=== PATIENT | female | born 1950 | race Caucasian/White ===

== ENCOUNTER 2018-07-23 07:04 | Day surgery (SDC) | payer MEDICARE, BC ==
[~2018-07-23 07:04] MED LIST: CEFAZOLIN 2 Gram 2 GM/50 ML BAG IVPB ONE; CELECOXIB 100 MG CAPSULE PO ONE; FAMOTIDINE 20MG TABLET PO ONE; METOCLOPRAMIDE 10 MG TABLET PO ONE; SCOPOLAMINE 1 PATCH TDSY TD ONE; VANCOMYCIN HCL 1,000 MG in DEXTROSE 5 % IN WATER 250 ML IVPB ONE
[2018-07-23] MEDS ORDERED: ONDANSETRON HCL IV 4 MG/2 ML VIAL IVP ONE (07:05)
[2018-07-23] MEDS ORDERED: MIDAZOLAM HCL 2MG/2ML VIAL IV ONE (07:05)
[2018-07-23] MEDS ORDERED: FENTANYL PF 100MCG/2ML VIAL IV ONE ×2 (07:05)
[2018-07-23] MEDS ORDERED: PROPOFOL 10 MG/ML VIAL IV ONE (07:05)
[2018-07-23] MEDS ORDERED: LIDOCAINE 2% MDV (20MG/ML) 20ML VIAL IV ONE (07:05)
[2018-07-23] MEDS ORDERED: HYDROMORPHONE HCL 2 MG/ML VIAL IV ONE (07:05)
[2018-07-23] MEDS ORDERED: DEXAMETHASONE 4 MG/ML 1ML VIAL IVP ONE (07:05)
[2018-07-23] MEDS ORDERED: TRANEXAMIC ACID 1,000 MG/10 ML ML IV ONE (07:05)
[2018-07-23] MEDS ORDERED: BUPIVACAINE 0.5% W/EPI MPF 30 ML VIAL IVP ONE (07:05)
[2018-07-23] MEDS ORDERED: SEVOFLURANE 250 ML INH ONE (07:05)
[2018-07-23 08:00] LABS: ABO GROUP A; ANTIBODY SCREEN NEGATIVE (NEGATIVE); RH TYPE POSITIVE
[2018-07-23] MEDS ORDERED: AL HYDROX/MAG HYDROX 30ML UD PO PRN (11:27)
[2018-07-23] MEDS ORDERED: TRAMADOL HCL 50 MG TABLET PO PRN (11:27)
[2018-07-23] MEDS ORDERED: HYDROMORPHONE HCL 2 MG/ML VIAL IM PRN (11:27)
[2018-07-23] MEDS ORDERED: DIPHENHYDRAMINE HCL 25 MG CAPSULE PO PRN (11:27)
[2018-07-23] MEDS ORDERED: ACETAMINOPHEN 325 MG TAB PO PRN (11:27)
[2018-07-23] MEDS ORDERED: ACETAMINOPHEN W/ CODEINE 300MG/60MG TABLET PO PRN ×2 (11:27)
[2018-07-23] MEDS ORDERED: MAGNESIUM HYDROXIDE 30 ML UDC PO PRN (11:27)
[2018-07-23] MEDS ORDERED: ZOLPIDEM TARTRATE 5 MG TABLET PO PRN (11:27)
[2018-07-23] MEDS ORDERED: BISACODYL 10 MG SUPP RC PRN (11:27)
[2018-07-23] MEDS ORDERED: HYDROCODONE/APAP 10/325 TABLET PO PRN (11:27)
[2018-07-23] MEDS ORDERED: KETOROLAC 30 MG/ML VIAL IVP PRN ×2 (11:27)
[2018-07-23] MEDS ORDERED: NALOXONE 0.4 MG/1 ML VIAL IVP PRN (11:27)
[2018-07-23] MEDS ORDERED: PNEUM 23-VAL ADULT IM ONE (13:01)
--- NOTE | 2018-07-23 14:09 | Rehab Evaluation ---
Patient Information - Patient Information Diagnosis: R knee OA Ordered Treatment: PT Evaluate and Treat Status: Initial Evaluation Surgery: Yes (R TKA) Date of Surgery: 07/23/18 Past Medical/Surgical Hx: PAST MEDICAL/SURGICAL HISTORY Past Surgical History left knee scope cardiac ablations x's 4 last one 2015 PMH - Respiratory Hx Respiratory Disorders Yes Hx Bronchitis Yes Hx Sleep Apnea Yes Hx of CPAP Yes PMH - Cardiovascular Hx Cardiovascular Disorders Yes Hx Abnormal EKG Yes Hx Cardiac Catheterization Yes: x's 2 Hx Hypertension Yes: on meds good control Hx Irregular Heartbeat Yes: a fib has had ablations x's 4 Exercise Tolerance Fair PMH - Neuro Hx Neurological Disorders Yes Comment: RLS PMH - GI Hx Gastrointestinal Disorders Yes Hx Weight Loss/Weight Gain Yes: 40 lb gain over last year after custodial PMH - Hx Genitourinary Disorders No Hx Age of Menopause 42 PMH - Endocrine Hx Endocrine Disorders Yes Hx Thyroid Disease Yes PMH - Musculoskeletal Hx Musculoskeletal Disorders Yes Hx Arthritis Yes: OA Comment: systemic lupus PMH - Psych Hx Psychiatric Problems No PMH - Hematology/Oncology Hx Hematology/Oncology Yes Disorders Hx Bruising Yes: on Eliquis Hx Cancer Yes: skin Premorbid Status: Detail (The patient was independent with all mobility prior to surgery.) Social History: Detail (The patient lives in a 2 story house with spouse with 3 steps at the enterance with one railing. There are 13 stairs to climb to second floor with one handrail. The patient's bathroom is equipped with a tub/shower combination and an elevated toilet. No handrails are present. The patient has a standard walker.) Precautions: [place], Fall, Other (WBAT on the R LE) - Time With Patient Total Time Spent With Patient (Min): 30 Treatment Procedures: Detail (Initial Evaluation, Gait training) Subjective Information - Subjective Information Per Patient (The patient had complaints of R knee pain level 8 at the highest using 0-10 pain scale after ambulating. The patient also had complaints of lightheadness and nausea when sitting.) Objective Data - Mental Status Patient Orientation: Oriented x3 - Visual Perception Appears within normal limits for therapeutic activities - ROM Not within normal limits (The patient's R knee AROM was limited s/p surgery, all other LE AROM was WNL.) - Strength/Tone Not within normal limits (The patient's R LE strength was not tested however was functional ie: patient was able to complete a SLR. The patient's L LE strength was WFL.) - Bed Mobility Independent (The patient was independent with supine to and from sit transfer and scooting up in bed.) - Transfers Independent (The patient was independent with sit to and from stand transfer and toilet transfer with use of grab bar.) - Balance Balance Sitting: Good Balance Standing: Good - Sensation Intact - Gait Detail (The patient ambulated with standard walker with supervision/CG for safety 15 feet x 1 WBAT one R LE. The patient c/o nausea and slight lightheadedness.) Therapy Assessment - Therapy Assessment Detail (The patient was independent with bed mobility and transfers. The patient ambulated limited distance secondary to lightheadness and nausea. Feel patient will progress well with mobility.) Patient Education - Patient Education Teaching Topic: Exercise/Activity (The patient completed the following TKA exercises: ankle pumps, heel slides, SLR, gluteal sets, quad sets and hamstring sets.) Response: Return Demonstration Teaching Method: Demonstration, Handout Teaching Recipient: Patient Barriers To Learning: None Problem List - Problem List Physical Therapy Problem List: Detail (1) Decreased R knee AROM and R LE strength as to be expected following surgery 2) Nonambulatory on stairs) Goals - Goals Physical Therapy Goals: 1) The patient will ambulate independently a distance of 100 feet plus with assistive device WBAT on the R LE. 2) The patient will ambulate on stairs with supervision for safety using proper technique. Prognosis - Prognosis Good Plan - Plan Physical Therapy Plan: PT for 1-2 sessions for gait training on levels and stairs.
[2018-07-23] MEDS: HYDROCODONE/APAP 10/325 TABLET PO PRN ×2 (15:22→20:47)
[2018-07-23] MEDS: ONDANSETRON HCL IV 4 MG/2 ML VIAL IVP PRN ×2 (15:22→20:49)
[2018-07-23] MEDS: PROPRANOLOL HCL 10 MG TABLET PO SCH ×2 (15:24→21:42)
[2018-07-23] MEDS: POTASSIUM CHLORIDE/D5-0.9%NACL 20 MEQ/1,000 ML BAG IV SCH ×3 (16:21→20:52)
[2018-07-23] MEDS: CEFAZOLIN 2 Gram 2 GM/50 ML BAG IVPB SCH (17:57)
[2018-07-23] MEDS: APIXABAN 5MG TABLET PO SCH (17:58)
[2018-07-23] MEDS: ROPINIROLE HCL 1 MG TABLET PO SCH ×2 (18:07→20:46)
[2018-07-23] MEDS: POTASSIUM CHLORIDE 20 MEQ TABLET PO SCH (21:41)
[2018-07-23] MEDS: VERAPAMIL HCL 180 MG TAB CR PO SCH (21:42)
[2018-07-23] MEDS: DOCUSATE SODIUM 100 MG CAPSULE PO SCH (21:42)
[2018-07-23] MEDS ORDERED: ATORVASTATIN 20 MG TABLET PO SCH (22:00)
[2018-07-23] MEDS ORDERED: PATIENT OWN MED: ROPINIROLE 0.5 MG PO SCH (22:00)
[2018-07-24] MEDS: HYDROCODONE/APAP 10/325 TABLET PO PRN ×3 (01:20→10:50)
[2018-07-24] MEDS: CEFAZOLIN 2 Gram 2 GM/50 ML BAG IVPB SCH ×3 (01:21→11:39)
[2018-07-24] MEDS: POTASSIUM CHLORIDE/D5-0.9%NACL 20 MEQ/1,000 ML BAG IV SCH (06:08)
[2018-07-24 06:54] LABS: HEMATOCRIT 37.7 % (35.0-47.0); HEMOGLOBIN 12.2 gm/dl (11.6-16.0)
[2018-07-24] MEDS ORDERED: LEVOTHYROXINE SODIUM 75 MCG TABLET PO SCH (07:00)
[2018-07-24 07:04] LABS: BLOOD UREA NITROGEN 15 mg/dL (8-23); CREATININE 0.6 mg/dL (0.5-0.9); EST GLOMERULAR FILTRATION RATE > 60 mL/min; GLUCOSE,RANDOM 121 mg/dL (74-109)
[2018-07-24] MEDS: ONDANSETRON HCL IV 4 MG/2 ML VIAL IVP PRN (07:51)
--- NOTE | 2018-07-24 08:22 | Rehab Evaluation ---
Patient Information - Patient Information Diagnosis: R knee OA Ordered Treatment: OT Evaluate and Treat Status: Initial Evaluation Surgery: Yes (R TKA) Date of Surgery: 07/23/18 Past Medical/Surgical Hx: PAST MEDICAL/SURGICAL HISTORY Past Surgical History left knee scope cardiac ablations x's 4 last one 2015 PMH - Respiratory Hx Respiratory Disorders Yes Hx Bronchitis Yes Hx Sleep Apnea Yes Hx of CPAP Yes PMH - Cardiovascular Hx Cardiovascular Disorders Yes Hx Abnormal EKG Yes Hx Cardiac Catheterization Yes: x's 2 Hx Hypertension Yes: on meds good control Hx Irregular Heartbeat Yes: a fib has had ablations x's 4 Exercise Tolerance Fair PMH - Neuro Hx Neurological Disorders Yes Comment: RLS PMH - GI Hx Gastrointestinal Disorders Yes Hx Weight Loss/Weight Gain Yes: 40 lb gain over last year after fdc PMH - Hx Genitourinary Disorders No Hx Age of Menopause 42 PMH - Endocrine Hx Endocrine Disorders Yes Hx Thyroid Disease Yes PMH - Musculoskeletal Hx Musculoskeletal Disorders Yes Hx Arthritis Yes: OA Comment: systemic lupus PMH - Psych Hx Psychiatric Problems No PMH - Hematology/Oncology Hx Hematology/Oncology Yes Disorders Hx Bruising Yes: on Eliquis Hx Cancer Yes: skin Premorbid Status: Detail (The patient was independent with all mobility, home mgmt and laundry prior to surgery. Spouse completes meal prep and will be assisting with IADLs.) Social History: Detail (The patient lives in a 2 story house with spouse with 3 steps at the entrance with one railing. There are 13 stairs to climb to second floor with one handrail. Her bedroom and one bathroom are on the second floor. The patient's bathroom is equipped with a tub/shower combination and an elevated toilet. No handrails are present. The patient has a 2 wheeled walker, cane, director account management and long shoe horn and has ordered a tub seat and suction cup grab bar for the tub.) Precautions: [place], Fall, Other (WBAT on the R LE) - Time With Patient Total Time Spent With Patient (Min): 35 Treatment Procedures: Detail (OT eval low complexity) Subjective Information - Subjective Information Per Patient Objective Data - Pain Pain Present: Yes (05/27) - Mental Status Patient Orientation: Oriented x3 - Visual Perception Appears within normal limits for therapeutic activities - ROM Within normal limits (Ned UE AROM WNL) - Strength/Tone Within normal limits (Ned UE strength WNL) - Coordination Appears within normal limits for therapeutic activities - Bed Mobility Independent (Ind with supine to sit) - Transfers Independent (Ind with sit to stand from EOB and chair height.) - Balance Balance Sitting: Good Balance Standing: Good - Sensation Intact - Gait Detail (Pt ambulating in room with 2 wheeled walker Indly.) - ADL's/IADL's Detail (Pt educated and able to demonstrate learning of modified LE dressing techniques including doffing briefs and donning underwear and pants. Pt reports she will not be wearing socks and she has slip on shoes but would prefer to keep slipper socks on currently. Pt educated re: shower and kitchen safety and modifications. She was able to demonstrate learning.) Therapy Assessment - Therapy Assessment Detail (Pt is safe and Ind with modified LE dressing techniques.) Problem List - Problem List Physical Therapy Problem List: Detail (1) Decreased R knee AROM and R LE strength as to be expected following surgery 2) Nonambulatory on stairs) Occupational Therapy Problem List: Detail (No current IP OT problems identified. ) Goals - Goals Physical Therapy Goals: 1) The patient will ambulate independently a distance of 100 feet plus with assistive device WBAT on the R LE. 2) The patient will ambulate on stairs with supervision for safety using proper technique. Occupational Therapy Goals: No current IP OT goals identified. Prognosis - Prognosis Good Plan - Plan Physical Therapy Plan: PT for 1-2 sessions for gait training on levels and stairs. Occupational Therapy Plan: No IP OT recommended at this time. Thank you for the referral.
[2018-07-24] MEDS ORDERED: FERROUS SULFATE 325 MG TAB PO SCH (10:00)
[2018-07-24] MEDS ORDERED: BUMETANIDE 1 MG TABLET PO SCH (10:00)
[2018-07-24] MEDS ORDERED: AMIODARONE HCL 200 MG TABLET PO SCH (10:00)
[2018-07-24] MEDS: APIXABAN 5MG TABLET PO SCH (10:09)
[2018-07-24] MEDS: VERAPAMIL HCL 180 MG TAB CR PO SCH (10:09)
[2018-07-24] MEDS: PROPRANOLOL HCL 10 MG TABLET PO SCH (10:10)
[2018-07-24] MEDS: POTASSIUM CHLORIDE 20 MEQ TABLET PO SCH (10:10)
[2018-07-24] MEDS: DOCUSATE SODIUM 100 MG CAPSULE PO SCH (10:10)
--- NOTE | 2018-07-24 10:10 | Physical Therapy Tx Note ---
Physical Therapy Tx Note - Treatment Note Tolerated: Good Total Time Spent With Patient: 25 Physical Therapy Tx Note: Detail (The patient ambulated with 2 wheeled walker a distance of 128 feet x 1 WBAT on R LE. The patient ambulated on 3 steps with use of railing and folded walker using proper technique with supervision for safety. The patient's HEP of TKA exercises was reviewed. The patient has met inpatient goals and is discharged from inpatient PT.) Physical Therapy Problem List: Detail (1) Decreased R knee AROM and R LE strength as to be expected following surgery 2) Nonambulatory on stairs) Physical Therapy Goals: 1) The patient will ambulate independently a distance of 100 feet plus with assistive device WBAT on the R LE. (Goal Met). 2) The patient will ambulate on stairs with supervision for safety using proper technique. (Goal Met) Physical Therapy Plan: The patient has met all inpatient goals and is discharged from inpatient PT. The patient is to receive outpatient PT.
--- NOTE | 2018-07-30 14:00 | Operative Note ---
DATE OF SURGERY: 07/23/2018 PREOPERATIVE DIAGNOSIS: End-stage arthrosis of the right knee. POSTOPERATIVE DIAGNOSIS: End-stage arthrosis of the right knee. OPERATION: Cemented right total knee arthroplasty using Anton and Nephew Eda II components, a size 5 Oxinium femur, size 5 stem tibia baseplate, a 9 mm lipped, tightly crosslinked tibial insert, and a 32 mm all plastic patella. Staff Surgeon: Sumit Kaplan MD Anesthesia: General. Preparation: Chloraprep. Individual Considerations: None. PROCEDURE: The patient was taken to the operating room, placed supine on the operating room table. Had a successful induction of a general anesthetic. The right lower extremity was prepped and draped in the usual fashion. Limb was elevated. Tourniquet was inflated to 250 mmHg. The patient had a midline approach to the knee. Sharp dissection carried down through the skin and subcutaneous tissue. Small veins were coagulated with a Bovie. A medial arthrotomy was performed. Patella was everted and exposed bone in the medial and patellofemoral compartments. Fat pad was resected. ACL was sacrificed. Provisional anterior meniscectomies were performed, and the capsule was released from the medial proximal tibia. The initial femoral river pilot hole was then made freehand. The intramedullary femoral cutting jig was placed. It was cut in 7.0 degrees of valgus and adjusted for rotation and secured with pins for a 10 mm resection. The initial transverse cut was then made. Skin guide was placed in the anterior and posterior river pilot holes. The transverse cut was 10 mm. The anterior river pilot holes were impacted and it was found that a size 5 would be appropriate. The anterior and posterior cuts followed by chamfer cuts were made. Osteophytes were removed. A size 5 trial was placed and found to fit well. The tibia was brought forward and the remainder of the meniscal remnants removed with a Bovie. The extraarticular tibial cutting jig was placed. It was cut in neutral with a 3-degree AP slope. Care was taken to adjust for rotation and flexion using the extraarticular alignment guide and bony landmarks. It was sent for 9 mm resection keyed off the high lateral side and secured with pins. When cutting the tibia, care was taken to preserve the PCL insertion on the tibia. After removing osteophytes, I was able to fit a size 5. It was adjusted for rotation and secured with pins. We had a 9 mm trial and femoral trial. There was excellent motion and stability, ligamentous balance, rotation, alignment, and patellofemoral tracking were normal. The patient had a thick patella and roughly 9 mm of bone was removed. I was able to put in a 32 mm patella and the 3 river pilot holes were drilled. Elevator Installer Apprentice holes were also impacted on the femoral and tibial sides off the trials. Tourniquet leg down briefly to get bleeders posteriorly, then placed back up again. The patient had the bony surfaces then dried. Prior to this, I did thoroughly irrigate out with pulsatile Betadine and saline. Bony surfaces were then dried. A size 5 stem tibia baseplate was cemented into place followed by impaction of the 9 mm tibial insert followed by cementing in s size 5 Oxinium femur followed by cementing in a 32 mm all plastic patella. Implant surfaces were compressed. Excess cement was removed. After the cement had set, there was excellent motion and stability, ligamentous balance, rotation, alignment, and patellofemoral tracking were normal. No lateral recess was required. After thorough irrigation, tourniquet let down. Hemostasis was obtained with a Bovie. The capsule was then closed with a running #2 quill. Prior to this, the subcu, skin, and periosteum were infiltrated with 30 mL of 0.5% Marcaine with epinephrine. After closing the fascia, the subcu was closed in layers, running 0 quill, skin was closed with jeanette. The patient did receive 1 gram of tranexamic acid perioperatively. I mixed 1 g of tranexamic acid with 30 mL of saline and injected into the knee through a sterile 18-gauge needle. A sterile bulky compression SMILEY type dressing was applied. The patient tolerated procedure well. Needle and sponge counts were correct. Estimated blood loss was minimal. She was taken back to recovery in good condition. There were no complications MTDD
== END 2018-07-24 13:05 | disposition home health service (06) ==
LOC: SUR 07:04 → MEDSURG 12:27 → SUR 07-24 13:05
PROVIDERS: ATTEND Orthopaedic Surgery
DX: M17.11 Unilateral primary osteoarthritis, right knee (principal); I48.91 Unspecified atrial fibrillation; Z79.01 Long term (current) use of anticoagulants; E78.00 Pure hypercholesterolemia, unspecified; C03.9 Malignant neoplasm of gum, unspecified; G25.81 Restless legs syndrome; M19.90 Unspecified osteoarthritis, unspecified site
CPT/HCPCS: 80048; 85014; 85018; 86850; 86900; 86901; 97530; J1885; J2405; J3480; J7060

== ENCOUNTER 2018-11-19 08:40 | Day surgery (SDC) | payer MEDICARE, BC ==
[~2018-11-19 08:40] MED LIST changes: +MECLIZINE 25 MG TABLET PO ONE
[2018-11-19] MEDS ORDERED: FENTANYL PF 100MCG/2ML VIAL IV ONE (08:41)
[2018-11-19] MEDS ORDERED: BUPIVACAINE 0.5% W/EPI MPF 30 ML VIAL IVP ONE (08:41)
[2018-11-19] MEDS ORDERED: 0.9 % SODIUM CHLORIDE 10 ML VIAL IVP ONE (08:41)
[2018-11-19] MEDS ORDERED: DEXAMETHASONE 4 MG/ML 1ML VIAL IVP ONE ×2 (08:41)
[2018-11-19] MEDS ORDERED: MIDAZOLAM HCL 2MG/2ML VIAL IV ONE (08:41)
[2018-11-19] MEDS ORDERED: TRANEXAMIC ACID 1,000 MG/10 ML ML IV ONE ×2 (08:41)
[2018-11-19] MEDS ORDERED: ONDANSETRON HCL IV 4 MG/2 ML VIAL IVP ONE (08:41)
[2018-11-19] MEDS ORDERED: LIDOCAINE 2% MDV (20MG/ML) 20ML VIAL IV ONE (08:41)
[2018-11-19] MEDS ORDERED: PROPOFOL 10 MG/ML VIAL IV ONE (08:41)
[2018-11-19] MEDS ORDERED: SEVOFLURANE 250 ML INH ONE (08:41)
[2018-11-19] MEDS ORDERED: ROPIVACAINE HCL (NAROPIN) /PF 5MG/ML 20ML VIAL IV ONE (08:41)
[2018-11-19 09:30] LABS: ABO GROUP A; RH TYPE POSITIVE
[2018-11-19 09:33] LABS: ANTIBODY SCREEN NEGATIVE (NEGATIVE)
[2018-11-19] MEDS ORDERED: HYDROMORPHONE HCL 2 MG/ML VIAL IM PRN (13:04)
[2018-11-19] MEDS ORDERED: ACETAMINOPHEN 325 MG TAB PO PRN (13:04)
[2018-11-19] MEDS ORDERED: TRAMADOL HCL 50 MG TABLET PO PRN (13:04)
[2018-11-19] MEDS ORDERED: NALOXONE 0.4 MG/1 ML VIAL IVP PRN (13:04)
[2018-11-19] MEDS ORDERED: DIPHENHYDRAMINE HCL 25 MG CAPSULE PO PRN (13:04)
[2018-11-19] MEDS ORDERED: AL HYDROX/MAG HYDROX 30ML UD PO PRN (13:04)
[2018-11-19] MEDS ORDERED: BISACODYL 10 MG SUPP RC PRN (13:04)
[2018-11-19] MEDS ORDERED: KETOROLAC 30 MG/ML VIAL IVP PRN (13:04)
[2018-11-19] MEDS ORDERED: ACETAMINOPHEN W/ CODEINE 300MG/60MG TABLET PO PRN ×2 (13:04)
[2018-11-19] MEDS ORDERED: ZOLPIDEM TARTRATE 5 MG TABLET PO PRN (13:04)
[2018-11-19] MEDS ORDERED: MAGNESIUM HYDROXIDE 30 ML UDC PO PRN (13:04)
[2018-11-19] MEDS: HYDROCODONE/APAP 10/325 TABLET PO PRN ×2 (17:16→21:29)
[2018-11-19] MEDS: ONDANSETRON HCL IV 4 MG/2 ML VIAL IVP PRN ×2 (17:17→21:30)
--- NOTE | 2018-11-19 17:46 | Rehab Evaluation ---
Patient Information - Patient Information Diagnosis: L knee OA Ordered Treatment: PT Evaluate and Treat Status: Initial Evaluation Surgery: Yes (L TKA) Date of Surgery: 11/19/18 Past Medical/Surgical Hx: PAST MEDICAL/SURGICAL HISTORY Surgery to Affected Area? No Recent Surgery? Past Surgical History RTKA 07-23-18 left knee scope cardiac ablations x's 4 last one 2015 PMH - Respiratory Hx Respiratory Disorders Yes Hx Bronchitis Yes Hx Sleep Apnea Yes Hx of CPAP Yes PMH - Cardiovascular Hx Cardiovascular Disorders Yes Hx Abnormal EKG Yes Hx Cardiac Catheterization Yes: x's 2 Hx Hypertension Yes: on meds good control Hx Irregular Heartbeat Yes: a fib has had ablations x's 4 Exercise Tolerance Fair PMH - Neuro Hx Neurological Disorders Yes Comment: RLS PMH - GI Hx Gastrointestinal Disorders Yes Hx Weight Loss/Weight Gain Yes: 40 lb gain over last year after fdc PMH - Hx Genitourinary Disorders No Hx Age of Menopause 42 PMH - Endocrine Hx Endocrine Disorders Yes Hx Thyroid Disease Yes PMH - Musculoskeletal Hx Musculoskeletal Disorders Yes Hx Arthritis Yes: OA Comment: systemic lupus PMH - Psych Hx Psychiatric Problems No PMH - Hematology/Oncology Hx Hematology/Oncology Yes Disorders Hx Bruising Yes: on Eliquis Hx Cancer Yes: skin Premorbid Status: Detail (The patient lives in a 2 story home with spouse with 2 steps and one handrail at the enterance. The bathroom is equipped with a tub/ shower combination, an elevated toilet seat with a riser and no grab bars. The patient has a front wheeled walker, standard cane and shower seat.) Precautions: [place], Fall, Other (WBAT on the L LE) - Time With Patient Total Time Spent With Patient (Min): 30 Treatment Procedures: Detail (Initial Evaluation , transfers) Subjective Information - Subjective Information Per Patient (The patient had complaints of lightheadedness when sitting up and standing up and also nausea.) Objective Data - Mental Status Patient Orientation: Oriented x3 - Visual Perception Appears within normal limits for therapeutic activities - ROM Not within normal limits (The patient's L knee AROM was limited s/p surgery. All other LE AROM was WNL.) - Strength/Tone Not within normal limits (The patient's L LE strength was not tested s/p surgery however, strength was functional ie: patient was able to complete a SLR. The patient's R LE strength was WNL.) - Bed Mobility Independent (The patient was independent with supine to and from sit transfer and scooting up in bed.) - Transfers Independent (The patient required CG/SBA for sit to and from stand and bed to commode transfer.) - Balance Balance Sitting: Good Balance Standing: Good - Sensation Intact - Gait Detail (The patient declined ambulation due to lightheadedness.) Therapy Assessment - Therapy Assessment Detail (The patient was independent with bed mobility and transfers. The patient declined ambulation due to lightheadness. Feel the patient will progress well once lightheadedness and symptoms of nausea decline.) Problem List - Problem List Physical Therapy Problem List: Detail (1) Decreased L knee AROM and L LE strength 2) Impaired ambulation.) Goals - Goals Physical Therapy Goals: 1) The patient will be independent with TKA HEP. 2) The patient will ambulate with front wheeled walker community distances independently. 3) The patient will ambulate on stairs with supervision for safety. Prognosis - Prognosis Good Plan - Plan Physical Therapy Plan: PT 1-2 sessions for gait training on levels, stairs and instruction in TKA HEP.
[2018-11-19] MEDS ORDERED: PATIENT OWN MED: ROPINIROLE 0.5 MG PO SCH ×2 (18:00→22:00)
[2018-11-19] MEDS: APIXABAN 5MG TABLET PO SCH (18:25)
[2018-11-19] MEDS: CEFAZOLIN 2 Gram 2 GM/50 ML BAG IVPB SCH (18:26)
[2018-11-19] MEDS: DOCUSATE SODIUM 100 MG CAPSULE PO SCH (21:24)
[2018-11-19] MEDS: VERAPAMIL HCL 180 MG TAB CR PO SCH (21:24)
[2018-11-19] MEDS: POTASSIUM CHLORIDE 20 MEQ TABLET PO SCH (21:24)
[2018-11-19] MEDS: POTASSIUM CHLORIDE/D5-0.9%NACL 20 MEQ/1,000 ML BAG IV SCH (21:27)
[2018-11-19] MEDS ORDERED: ATORVASTATIN 20 MG TABLET PO SCH (22:00)
[2018-11-20] MEDS: HYDROCODONE/APAP 10/325 TABLET PO PRN ×3 (00:03→10:54)
[2018-11-20] MEDS: POTASSIUM CHLORIDE/D5-0.9%NACL 20 MEQ/1,000 ML BAG IV SCH ×2 (00:07→06:59)
[2018-11-20] MEDS: CEFAZOLIN 2 Gram 2 GM/50 ML BAG IVPB SCH ×2 (02:27→10:57)
[2018-11-20] MEDS: ONDANSETRON HCL IV 4 MG/2 ML VIAL IVP PRN ×2 (05:50→10:55)
[2018-11-20 06:58] LABS: HEMATOCRIT 39.4 % (35.0-47.0); HEMOGLOBIN 12.8 gm/dl (11.6-16.0)
[2018-11-20] MEDS ORDERED: LEVOTHYROXINE SODIUM 75 MCG TABLET PO SCH (07:00)
[2018-11-20 07:13] LABS: BLOOD UREA NITROGEN 11 mg/dL (8-23); CREATININE 0.6 mg/dL (0.5-0.9); EST GLOMERULAR FILTRATION RATE > 60 mL/min; GLUCOSE,RANDOM 269 mg/dL (74-109)
[2018-11-20] MEDS: APIXABAN 5MG TABLET PO SCH (09:09)
[2018-11-20] MEDS: DOCUSATE SODIUM 100 MG CAPSULE PO SCH (09:10)
[2018-11-20] MEDS: VERAPAMIL HCL 180 MG TAB CR PO SCH (09:10)
[2018-11-20] MEDS: POTASSIUM CHLORIDE 20 MEQ TABLET PO SCH (09:10)
[2018-11-20] MEDS ORDERED: FERROUS SULFATE 325 MG TAB PO SCH (10:00)
[2018-11-20] MEDS ORDERED: AMIODARONE HCL 200 MG TABLET PO SCH (10:00)
[2018-11-20] MEDS ORDERED: HYDROXYCHLOROQUINE SULFATE 200 MG TABLET PO SCH (10:00)
[2018-11-20] MEDS ORDERED: INDERAL 60 MG PO SCH (10:00)
[2018-11-20] MEDS ORDERED: BUMETANIDE 1 MG TABLET PO SCH (10:00)
--- NOTE | 2018-11-20 10:46 | Physical Therapy Tx Note ---
Physical Therapy Tx Note - Treatment Note Tolerated: Good Total Time Spent With Patient: 25 Physical Therapy Tx Note: Detail (The patient was up in chair when PT arrived and complained of minimal L knee pain. The patient was independent with sit to and from stand transfer. The patient ambulated with front wheeled walker a distance of 100 feet x 1 WBAT on the R LE independently. The patient ambulated on stairs with use of one railing using proper technique with supervision for safety only. The patient completed TKA exercises including: ankle pumps, quad sets, hamstring sets, gluteal sets, heel slides, SLR. The patient has met all inpatient PT goals and is discharged from inpatient PT.) Physical Therapy Problem List: Detail (1) Decreased L knee AROM and L LE strength 2) Impaired ambulation.) Physical Therapy Goals: 1) The patient will be independent with TKA HEP. (Goal Met). 2) The patient will ambulate with front wheeled walker community distances independently.(Goal Met). 3) The patient will ambulate on stairs with supervision for safety.(Goal Met) Physical Therapy Plan: The patient is discharged from inpatient PT and is to receive Home PT.
--- NOTE | 2018-11-20 11:48 | Rehab Evaluation ---
Patient Information - Patient Information Diagnosis: L knee OA Ordered Treatment: OT Evaluate and Treat Status: Initial Evaluation Surgery: Yes (L TKA) Date of Surgery: 11/19/18 Past Medical/Surgical Hx: PAST MEDICAL/SURGICAL HISTORY Surgery to Affected Area? No Recent Surgery? Past Surgical History RTKA 07-23-18 left knee scope cardiac ablations x's 4 last one 2015 PMH - Respiratory Hx Respiratory Disorders Yes Hx Bronchitis Yes Hx Sleep Apnea Yes Hx of CPAP Yes PMH - Cardiovascular Hx Cardiovascular Disorders Yes Hx Abnormal EKG Yes Hx Cardiac Catheterization Yes: x's 2 Hx Hypertension Yes: on meds good control Hx Irregular Heartbeat Yes: a fib has had ablations x's 4 Exercise Tolerance Fair PMH - Neuro Hx Neurological Disorders Yes Comment: RLS PMH - GI Hx Gastrointestinal Disorders Yes Hx Weight Loss/Weight Gain Yes: 40 lb gain over last year after custodial PMH - Hx Genitourinary Disorders No Hx Age of Menopause 42 PMH - Endocrine Hx Endocrine Disorders Yes Hx Thyroid Disease Yes PMH - Musculoskeletal Hx Musculoskeletal Disorders Yes Hx Arthritis Yes: OA Comment: systemic lupus PMH - Psych Hx Psychiatric Problems No PMH - Hematology/Oncology Hx Hematology/Oncology Yes Disorders Hx Bruising Yes: on Eliquis Hx Cancer Yes: skin Premorbid Status: Detail (The patient lives in a 2 story home with spouse with 3 steps and one handrail at the entrance. She will be staying on the first floor temporarily. The bathroom is equipped with a tub/shower combination with suction cup grab bars, an elevated toilet seat with a riser and no grab bars. The patient has a front wheeled walker, standard cane, sock aid, last putter away and shower seat. She was Ind with all home mgmt, meal prep and laundry although spouse will be assisting after discharge.) Precautions: [place], Fall, Other (WBAT on the L LE) - Time With Patient Total Time Spent With Patient (Min): 40 Treatment Procedures: Detail (OT eval low complexity) Subjective Information - Subjective Information Per Patient Objective Data - Pain Pain Present: Yes (01/24) - Mental Status Patient Orientation: Oriented x3 - Visual Perception Appears within normal limits for therapeutic activities - ROM Within normal limits (Ned UE AROM WNL) - Strength/Tone Within normal limits (Ned UE strength WNL) - Coordination Appears within normal limits for therapeutic activities - Transfers Independent (Ind with sit to stand from chair and toilet heights.) - Balance Balance Sitting: Good Balance Standing: Good - Sensation Intact - Gait Detail (Pt ambulating in room with 2 wheeled walker Indly.) - ADL's/IADL's Detail (Reviewed modified LE dressing techniques and pt able to demonstrate Ind with donning pants and slip on shoes. Reviewed kitchen and shower safety and modifications, she was able to verbalize understanding.) Therapy Assessment - Therapy Assessment Detail (Pt is Ind with modified LE dressing techniques) Problem List - Problem List Physical Therapy Problem List: Detail (1) Decreased L knee AROM and L LE strength 2) Impaired ambulation.) Occupational Therapy Problem List: Detail (No current IP OT problems identified. ) Goals - Goals Physical Therapy Goals: 1) The patient will be independent with TKA HEP. (Goal Met). 2) The patient will ambulate with front wheeled walker community distances independently.(Goal Met). 3) The patient will ambulate on stairs with supervision for safety.(Goal Met) Occupational Therapy Goals: No current IP OT goals identified. Prognosis - Prognosis Good Plan - Plan Physical Therapy Plan: The patient is discharged from inpatient PT and is to receive Home PT. Occupational Therapy Plan: Discharged from IP OT. Thank you for this referral.
--- NOTE | 2018-11-21 08:40 | Operative Note ---
DATE OF SURGERY: 11/19/2018 PREOPERATIVE DIAGNOSIS: End-stage arthrosis of the left knee. POSTOPERATIVE DIAGNOSIS: End-stage arthrosis of the left knee. OPERATION: Cemented left total knee arthroplasty using [employer] Eda II components with a size 5 Oxinium femur, a size 5 stem tibia baseplate, an 11 mm lipped tibial insert, and a 35 mm all plastic patella. Staff Surgeon: Sumit Kaplan MD Anesthesia: General. PREPARATION: Chloraprep. INDIVIDUAL CONSIDERATIONS: None. PROCEDURE: The patient was taken to the operating room, placed supine on the operating room table. She had a successful induction of a general anesthetic. The left lower extremity was prepped and draped in the usual fashion. The patient had a midline approach to the knee. The limb was elevated and tourniquet was inflated to 300 mmHg. Sharp dissection carried down through skin and subcutaneous tissue. Small veins were coagulated with a Bovie. A medial arthrotomy was performed. The patella was everted and the knee was flexed. The patient had exposed bone in all 3 compartments with large osteophytes. Fat pad was resected, ACL was sacrificed, provisional anterior meniscectomies were performed. The capsule was released from the medial proximal tibia. The initial femoral photogrammetry airplane pilot hole was then made freehand. The intramedullary femoral cutting jig was placed. It was cut in 7.0 degrees of valgus and adjusted for rotation and secured with pins for a 10 mm resection. The initial transverse cut was then made. The skin guide was placed in the anterior and posterior photogrammetry airplane pilot holes. It was found that I needed to translate this up 2 mm to fit a size 5 femur. The anterior and posterior cuts followed by chamfer cuts were made. Osteophytes removed, and a size 5 trial was placed and found to fit well. The tibia was brought forward, and the remainder of the meniscal remnants removed with a Bovie. The extraarticular tibial cutting jig was placed. It was cut in neutral with a 3-degree AP slope. Care was taken to adjust for rotation and flexion using the extraarticular alignment guide and bony landmarks. It was set for a 9 mm resection keyed off the high lateral side and secured with pins. When cutting the tibia, care was taken to preserve the PCL insertion on the tibia. After removing osteophytes, I could fit a size 5 baseplate. It was adjusted for rotation and secured with pins. With an 11 mm trial and femoral trial, there was excellent motion and stability, ligamentous balance, rotation alignment were thought to be normal. The femoral photogrammetry airplane pilot holes were impacted and a tri-flange tibial stamp was impacted. These trial components were removed. The patient had a thick patella and roughly 9 mm of bone was removed freehand. I was able to fit a 35 patella and the 3 photogrammetry airplane pilot holes were drilled. After thorough irrigation, tourniquet was let down to get bleeders posteriorly and placed back up again. Hemostasis again was obtained with a Bovie during that time. Again, thorough irrigation to remove any visual or palpable debris with Betadine and saline. Bony surfaces were then dried. A size 5 stem tibia baseplate was cemented into place followed by impaction of the 11 mm lipped tibial insert followed by cementing in the size 5 Oxinium femur followed by cementing in the 35 mm patella. The implant surfaces were compressed, excess cement was removed, and after the cement had set, there was excellent motion and stability, ligamentous balance, rotation alignment, and patellofemoral tracking were normal. No lateral release was required. Tourniquet was let down. Hemostasis was obtained with a Bovie. After irrigation, I went ahead and infiltrated the skin, periosteum, and subcu with 30 mL of 0.5% Marcaine with epinephrine. The capsule was then closed with a running #2 quill, subcu was closed in layers with running 0 quill, skin was closed with jeanette. The patient did receive 1 g of tranexamic acid preoperatively. I mixed 1 g of tranexamic acid with 30 mL of saline and injected into the knee through a sterile 18-gauge needle and a sterile bulky compressive SMILEY-type dressing was applied. The patient tolerated the procedure well. Needle and sponge counts were correct. Estimated blood loss was 150 mL. She was taken back to recovery in good condition. There were no complications. MARY
== END 2018-11-20 13:20 | disposition home or self-care (01) ==
LOC: UNDOADMIN 08:40 → SUR 08:40 → MEDSURG 08:40 → EDSTATUS 13:00 → MEDSURG 13:44 → SUR 13:44 → MEDSURG 16:52 → SUR 11-20 13:20
PROVIDERS: ATTEND Orthopaedic Surgery
DX: M17.12 Unilateral primary osteoarthritis, left knee (principal); I10 Essential (primary) hypertension; I48.91 Unspecified atrial fibrillation; Z79.01 Long term (current) use of anticoagulants; M19.90 Unspecified osteoarthritis, unspecified site; E78.00 Pure hypercholesterolemia, unspecified; R60.9 Edema, unspecified; G25.81 Restless legs syndrome
CPT/HCPCS: 27447; 01402; 64447; 85018; 85014; 80048; 36416; 82948; 86900; 86901; 86850; 94761; 94760; 76942; J2405 ×2; J3370; J3010; J0690 ×2; J3490 ×5; J2795; 97110; 97530; J3480; J7060